=== PATIENT | female | born 2000 | race Caucasian/White ===

== ENCOUNTER 2018-07-28 10:18 | Inpatient (IN) | payer OTHER ==
[2018-07-28 11:33] LABS: ADD UMIC YES; UR ASCORBIC ACID NEGATIVE (NEGATIVE); UR BACTERIA FEW /HPF (NONE SEEN); UR BILIRUBIN (Dip) NEGATIVE (NEGATIVE); UR BLOOD (Dip) 3+ mg/dL (NEGATIVE); UR BUDDING YEAST MODERATE /HPF (NONE SEEN); UR CLARITY CLOUDY (CLEAR); UR COLOR YELLOW (YELLOW); UR GLUCOSE (Dip) NEGATIVE (NEGATIVE); UR KETONES (Dip) NEGATIVE (NEGATIVE); UR LEUKOCYTE ESTERASE (Dip) 2+ Leu/ul (NEGATIVE); UR MUCUS FEW /HPF (NONE SEEN); UR NITRITE (Dip) NEGATIVE (NEGATIVE); UR RBC 0 /HPF (0-5); UR SPECIFIC GRAVITY (Dip) 1.017 (1.003-1.030); UR SQUAMOUS EPITHELIAL CELL MANY /HPF (FEW); UR TOTAL PROTEIN (Dip) NEGATIVE (NEGATIVE); UR UROBILINOGEN (Dip) NEGATIVE (NEGATIVE); UR WBC 8 /HPF (0-5)
[2018-07-28] MEDS ORDERED: BUTORPHANOL 2 MG INJ IV ×2 (13:30)
[2018-07-28] MEDS ORDERED: CARBOPROST 250 MCG INJ IM (13:30)
[2018-07-28] MEDS ORDERED: LIDOCAINE 1% (MPF) 30 ML INJ INJ (13:30)
[2018-07-28] MEDS ORDERED: OXYTOCIN 30 UNITS/LR 500 ML IV ×2 (13:30)
[2018-07-28] MEDS ORDERED: METHYLERGONOVINE 0.2 MG INJ IM (13:30)
[2018-07-28] MEDS ORDERED: MISOPROSTOL 200 MCG TAB PR (13:30)
[2018-07-28] MEDS: LACTATED RINGER'S 1,000 ML IV ×3 (13:59→19:34)
[2018-07-28 14:29] LABS: ADD MAN DIFF? NO
[2018-07-28 14:31] LABS: WHITE BLOOD COUNT 12.5 10^3/ul (4.8-10.8)
[2018-07-28 14:31] LABS: BASOPHILS % 0.2 % (0.0-2.0); EOSINOPHILS % 0.1 % (0.0-7.0); HEMATOCRIT 42.4 % (37.0-47.0); HEMOGLOBIN 14.8 g/dl (12.0-16.0); LYMPHOCYTES # 2.1 10^3/ul (0.8-2.9); LYMPHOCYTES % 17.1 % (18.0-55.0); MEAN CORPUSCULAR HGB CONC 34.9 g/dl (32.0-37.0); MEAN PLATELET VOLUME 11.2 fl (7.4-10.4); MONOCYTE # 0.6 10^3/ul (0.3-0.9); MONOCYTES % 4.7 % (0.0-13.0); NEUTROPHIL # 9.7 10^3/ul (1.6-7.5); NEUTROPHILS % 77.6 % (30.0-74.0); PLATELET COUNT 243 10^3/UL (140-415); RED BLOOD COUNT 4.93 10^6/ul (4.20-5.40); RED CELL DISTRIBUTION WIDTH 13.2 % (11.5-14.5)
[2018-07-28 14:53] LABS: INR 0.89; PROTIME 12.1 Sec (11.9-14.9); PT RATIO 0.9
[2018-07-28 14:54] LABS: PARTIAL THROMBOPLASTIN TIME 29.1 Sec (23.0-35.0)
[2018-07-28 16:13] LABS: RAPID PLASMA REAGIN NONREACTIVE (NR)
[2018-07-28] MEDS ORDERED: FENTAnyl 50 MCG/ML VIAL (17:05)
[2018-07-28] MEDS ORDERED: FENTAnyl 2MCG/ML-ROPIV 0.2% 100 ML (17:23)
[2018-07-28] MEDS ORDERED: NALOXONE (0.4 MG/ML) INJ IV (17:30)
[2018-07-28] MEDS: OXYTOCIN 30 UNITS/LR 500 ML IV (20:44)
[2018-07-29] MEDS: FENTAnyl 2MCG/ML-ROPIV 0.2% 100 ML BAG EPI ×2 (01:14→08:57)
[2018-07-29] MEDS: LACTATED RINGER'S 1,000 ML IV (04:30)
[2018-07-29] MEDS ORDERED: CEFAZOLIN 2 GM/50 ML (PMX) 50 ML IVPB (15:14)
[2018-07-29] MEDS: LACTATED RINGER'S 1,000 ML IV* ×2 (15:46→23:46)
[2018-07-29] MEDS ORDERED: MAGNESIUM HYDROXIDE 30ML CUP PO (16:00)
[2018-07-29] MEDS ORDERED: CARBOPROST 250 MCG INJ IM (16:00)
[2018-07-29] MEDS ORDERED: METHYLERGONOVINE 0.2 MG INJ IM (16:00)
[2018-07-29] MEDS ORDERED: DIBUCAINE 1% 30 GM OINT TOP (16:00)
[2018-07-29] MEDS ORDERED: ONDANSETRON 4 MG INJ IV (16:00)
[2018-07-29] MEDS ORDERED: ACETAMINOPHEN 325 MG TAB PO ×2 (16:00)
[2018-07-29] MEDS ORDERED: MISOPROSTOL 200 MCG TAB PR (16:00)
[2018-07-29] MEDS ORDERED: SENNA/DOCUSATE NA (8.6MG/50MG) TAB PO (16:00)
[2018-07-29] MEDS ORDERED: OXYTOCIN 30 UNITS/LR 500 ML IV (16:00)
[2018-07-29] MEDS: IBUPROFEN 600 MG TAB PO ×2 (16:04→23:59)
[2018-07-29] MEDS: CEFAZOLIN 2 GM/50 ML (PMX) 50 ML IVPB (16:05)
[2018-07-29] MEDS: MINERAL OIL LIGHT 10 ML VIAL TOP (16:06)
[2018-07-29] MEDS: OXYTOCIN 30 UNITS/LR 500 ML IV ×2 (16:08→21:51)
[2018-07-29] MEDS: WITCH HAZEL/GLYCERIN PAD PR (21:51)
[2018-07-29] MEDS: BENZOCAINE 20% 56 ML SPRAY TOP (21:51)
[2018-07-30 06:47] LABS: ADD MAN DIFF? NO
[2018-07-30 06:56] LABS: BASOPHILS % 0.3 % (0.0-2.0); EOSINOPHILS # 0.1 10^3/ul (0.0-0.5); EOSINOPHILS % 1.2 % (0.0-7.0); HEMATOCRIT 30.1 % (37.0-47.0); HEMOGLOBIN 10.3 g/dl (12.0-16.0); LYMPHOCYTES # 2.1 10^3/ul (0.8-2.9); LYMPHOCYTES % 18.7 % (18.0-55.0); MEAN CORPUSCULAR HGB CONC 34.2 g/dl (32.0-37.0); MEAN CORPUSCULAR VOLUME 87.8 fl (72.0-104.0); MONOCYTE # 0.9 10^3/ul (0.3-0.9); MONOCYTES % 7.8 % (0.0-13.0); NEUTROPHIL # 7.9 10^3/ul (1.6-7.5); NEUTROPHILS % 71.7 % (30.0-74.0); PLATELET COUNT 174 10^3/UL (140-415); RED BLOOD COUNT 3.43 10^6/ul (4.20-5.40); RED CELL DISTRIBUTION WIDTH 13.2 % (11.5-14.5)
[2018-07-30] MEDS: IBUPROFEN 600 MG TAB PO ×3 (12:17→23:50)
[2018-07-30] MEDS: LANOLIN HPA 1 PKT TOP (18:17)
[2018-07-30] MEDS: WITCH HAZEL/GLYCERIN PAD PR (23:50)
== END 2018-07-31 14:46 | disposition home or self-care (01) | DRG 807 ==
LOC: OBT 10:18 → PP1 07-29 17:24 → L-D 10:19 → OBT 13:19 → L-D 13:19
PROC: 10E0XZZ Delivery of Products of Conception, External Approach (ICD-10-PCS; principal; 2018-07-29)
DX: O80 Encounter for full-term uncomplicated delivery (principal); Z37.0 Single live birth; Z3A.39 39 weeks gestation of pregnancy
CPT/HCPCS: 62322; 76818; 81001; 85025; 85610; 85730; 86592; 86850; 86900; 86901; 87086